=== PATIENT | male | born 1980 | race Caucasian/White ===

== ENCOUNTER → 2017-12-31 | Outpatient (REF) | payer OTHER | LOC: M SFHCLERA 13:49 | DX: J02.9 Acute pharyngitis, unspecified (principal) ==

== ENCOUNTER 2018-01-30 22:24 | Emergency (ER) | payer OTHER, SELFPAY ==
[2018-01-30 23:36] LABS: BASO # 0.1 10^3/uL (0.0-0.2); EOS # 0.4 10^3/uL (0.0-0.50); EOS % 4.5 % (0.0-3.0); HEMATOCRIT 44.2 % (42.0-52.0); IMMATURE GRANULOCYTE % 0.2 % (0-3.0); LYMPH # 1.8 10^3/uL (1.5-4.5); LYMPH % 20.9 % (24.0-44.0); MEAN CORPUSCULAR HEMOGLOBIN 32.7 pg (27.0-33.0); MEAN CORPUSCULAR HGB CONC 36.2 g/dl (32.0-36.5); MEAN CORPUSCULAR VOLUME 90.4 fl (80.0-96.0); MONO # 0.7 10^3/uL (0.0-0.8); MONO % 8.4 % (0.0-5.0); NEUTROPHILS # 5.7 10^3/uL (1.8-7.7); PLATELET COUNT, AUTOMATED 233 10^3/uL (150-450); RED BLOOD COUNT 4.89 10^6/uL (4.30-6.10); RED CELL DISTRIBUTION WIDTH 12.1 % (11.5-14.5); WHITE BLOOD COUNT 8.8 10^3/uL (4.0-10.0)
[2018-01-30] MEDS: PERCOCET 5MG/325MG TAB PO ×2 (23:47)
[2018-01-31 00:48] LABS: ANION GAP 9 MEQ/L (8-16); BLOOD UREA NITROGEN 16 MG/DL (7-18); C REACTIVE PROTEIN QUANTITATIV 0.59 MG/DL (0.00-0.30); CALCIUM LEVEL 7.8 MG/DL (8.5-10.1); CARBON DIOXIDE LEVEL 24 MEQ/L (21-32); CHLORIDE LEVEL 108 MEQ/L (98-107); GLOMERULAR FILTRATION RATE > 60.0 (>60); GLUCOSE, FASTING 117 MG/DL (70-100); SODIUM LEVEL 141 MEQ/L (136-145)
[2018-01-31] MEDS: predniSONE 20 MG TAB PO ×2 (01:40)
[2018-01-31] MEDS: NORCO 5/325MG TABLET (BULK FOR ED) PO ×2 (01:41)
== END 2018-01-31 01:48 | disposition home or self-care (01) ==
LOC: M ED 01-31 01:48
DX: R22.31 Localized swelling, mass and lump, right upper limb (principal); M79.9 Soft tissue disorder, unspecified; L40.9 Psoriasis, unspecified; F17.210 Nicotine dependence, cigarettes, uncomplicated
CPT/HCPCS: 73200

== ENCOUNTER → 2018-04-07 | Outpatient (REF) | payer OTHER ==
[~2018-04-07] MED LIST: NORCOTAB PO; PRED20TA PO
== END ==
LOC: M SFHCLERA 15:46
PROVIDERS: ATTEND Nurse Practitioner Family
DX: R68.89 Other general symptoms and signs (principal)

== ENCOUNTER → 2018-05-16 | Outpatient (REF) | payer OTHER | LOC: M SFHCLERA 12:18 | PROVIDERS: ATTEND Physician Assistant | DX: R50.9 Fever, unspecified (principal) ==

== ENCOUNTER → 2018-05-16 | Outpatient (CLI) | payer OTHER ==
--- NOTE | 2018-05-17 07:24 | REP ---
Chest x-ray: Two views. History: Fever, chills, cough, chest pain. . Comparison study: October 19, 2007 . Findings: The lungs are well inflated and free of infiltrate. The pleural angles are sharp. The heart size is normal. Pulmonary vasculature is not increased. No significant bony abnormality is seen. Impression: Negative chest x-ray. Electronically Signed by Andrei Bautista MD 05/16/2018 01:24 P
== END ==
LOC: M LRY 12:40
PROVIDERS: ATTEND Physician Assistant
DX: R50.9 Fever, unspecified (principal); R07.9 Chest pain, unspecified; R05 Cough

== ENCOUNTER 2018-06-25 20:55 | Emergency (ER) | payer OTHER ==
[~2018-06-25] VITALS: Ht 182.9 cm; Wt 100.0 kg
[~2018-06-25 20:55] MED LIST changes: -BACT800T5 PO; -CLEO300C2 PO
[2018-06-25] MEDS ORDERED: BACT800T5 PO (21:01)
[2018-06-25] MEDS ORDERED: KETOROLAC 30 MG/ML VIAL (J1885) IV ONE (21:30)
[2018-06-25 21:57] LABS: BASO # 0.1 10^3/uL (0.0-0.2); BASO % 0.8 % (0.0-1.0); EOS # 0.2 10^3/uL (0.0-0.50); EOS % 2.7 % (0.0-3.0); HEMATOCRIT 46.9 % (42.0-52.0); HEMOGLOBIN 16.1 g/dl (13.5-17.5); LYMPH % 23.3 % (24.0-44.0); MEAN CORPUSCULAR HEMOGLOBIN 30.6 pg (27.0-33.0); MEAN CORPUSCULAR HGB CONC 34.3 g/dl (32.0-36.5); MONO # 0.7 10^3/uL (0.0-0.8); NEUTROPHILS # 5.6 10^3/uL (1.8-7.7); PLATELET COUNT, AUTOMATED 230 10^3/uL (150-450); RED BLOOD COUNT 5.27 10^6/uL (4.30-6.10); WHITE BLOOD COUNT 8.6 10^3/uL (4.0-10.0)
[2018-06-25] MEDS ORDERED: CLINDAMYCIN 900 MG in APPROPRIATE DILUENT 1 EA IV ONE (22:15)
[2018-06-25 22:27] LABS: BLOOD UREA NITROGEN 15 MG/DL (7-18); C REACTIVE PROTEIN QUANTITATIV 0.39 MG/DL (0.00-0.30); CALCIUM LEVEL 8.9 MG/DL (8.5-10.1); CARBON DIOXIDE LEVEL 26 MEQ/L (21-32); CHLORIDE LEVEL 111 MEQ/L (98-107); CREATININE FOR GFR 0.72 MG/DL (0.70-1.30); GLOMERULAR FILTRATION RATE > 60.0 (>60); GLUCOSE, FASTING 73 MG/DL (70-100); POTASSIUM SERUM 4.5 MEQ/L (3.5-5.1); SODIUM LEVEL 142 MEQ/L (136-145)
[2018-06-25] MEDS: ACETAMINOPHEN 325 MG TAB PO ONE ×2 (22:33→22:42)
[2018-06-25 23:20] LABS: ALBUMIN 4.1 GM/DL (3.2-5.2); ALT/SGPT 96 U/L (12-78); BILIRUBIN,DIRECT 0.2 MG/DL (0.0-0.2); BILIRUBIN,TOTAL 0.7 MG/DL (0.2-1.0); TOTAL PROTEIN 7.5 GM/DL (6.4-8.2)
[2018-06-25 23:34] LABS: ERYTHROCYTE SEDIMENTATION RATE 3 mm/hr (0-15)
[2018-06-25] MEDS ORDERED: CLEO300C2 PO (23:36)
[2018-06-25 23:56] VITALS: BP 134/74
== END 2018-06-25 23:58 | disposition home or self-care (01) ==
LOC: M ED 20:55
DX: L03.113 Cellulitis of right upper limb (principal); T45.1X5A Adverse effect of antineoplastic and immunosuppressive drugs, initial encounter; R94.5 Abnormal results of liver function studies; F17.200 Nicotine dependence, unspecified, uncomplicated; Z79.2 Long term (current) use of antibiotics; K92.9 Disease of digestive system, unspecified; N50.9 Disorder of male genital organs, unspecified

== ENCOUNTER → 2018-06-25 | Outpatient (REF) | payer OTHER ==
[~2018-06-25] MED LIST changes: +BACT800T5 PO; +CLEO300C2 PO
== END ==
LOC: M SFHCLERA 17:36
PROVIDERS: ATTEND Physician Assistant
DX: J02.9 Acute pharyngitis, unspecified (principal)

== ENCOUNTER 2018-10-05 00:21 | Emergency (ER) | payer OTHER ==
[~2018-10-05] VITALS: Ht 182.9 cm; Wt 102.3 kg
[~2018-10-05 00:21] MED LIST changes: +BACT800T5 PO; +CLEO300C2 PO; +HYDR-3715 PO; -NORCOTAB PO
[2018-10-05 00:22] VITALS: BP 151/90
[2018-10-05] MEDS ORDERED: OXYC10TA12 (00:26)
[2018-10-05] MEDS ORDERED: GABA-843 (00:26)
[2018-10-05] MEDS ORDERED: LEVO25TA5 PO (00:26)
[2018-10-05] MEDS ORDERED: BACT800T5 PO (03:59)
[2018-10-05] MEDS ORDERED: BACTRIM 160MG/800MG DS TAB PO ONE (04:00)
[2018-10-05] MEDS ORDERED: LIDOCAINE 1% SDV 5 ML VIAL DILUENT ONE (04:00)
[2018-10-05] MEDS ORDERED: cefTRIAXone SOD 1 GM VIAL (J0696) IM ONE (04:00)
== END 2018-10-05 04:17 | disposition home or self-care (01) ==
LOC: M ED 00:21
DX: L03.114 Cellulitis of left upper limb (principal); L04.0 Acute lymphadenitis of face, head and neck; Z72.0 Tobacco use; Z79.899 Other long term (current) drug therapy
CPT/HCPCS: 96372; 99283; J0696

== ENCOUNTER 2019-02-02 09:42 | Emergency (ER) | payer OTHER ==
[~2019-02-02] VITALS: Ht 182.9 cm; Wt 102.2 kg
[~2019-02-02 09:42] MED LIST changes: +GABA-843; +LEVO25TA5 PO; +OXYC10TA12
[2019-02-02] MEDS ORDERED: IPRATROPIUM 0.5MG/ALBUTEROL 2.5MG INH SOL UD 3ML (DUONEB)(J7620) NEB ONE (10:30)
--- NOTE | 2019-02-02 10:46 | REP ---
Single view chest: 02/02/2019. Indication: Chest pain. Comparison: 05/16/2018. Findings: The lungs are clear. There is no pleural effusion or pneumothorax. The cardiomediastinal silhouette is unremarkable. Impression: No acute cardiopulmonary process. Electronically Signed by Chad Galindo DO 02/02/2019 10:37 A
[2019-02-02 10:55] LABS: BASO # 0.1 10^3/uL (0.0-0.2); BASO % 0.9 % (0.0-1.0); EOS # 0.2 10^3/uL (0.0-0.5); EOS % 2.5 % (0.0-3.0); HEMATOCRIT 47.7 % (42.0-52.0); HEMOGLOBIN 16.8 g/dl (13.5-17.5); LYMPH # 1.1 10^3/uL (1.5-5.0); MEAN CORPUSCULAR HEMOGLOBIN 31.7 pg (27.0-33.0); MEAN CORPUSCULAR HGB CONC 35.2 g/dl (32.0-36.5); MONO # 0.9 10^3/uL (0.0-0.8); MONO % 10.6 % (0.0-5.0); NEUTROPHILS # 5.7 10^3/uL (1.5-8.5); NEUTROPHILS % 71.6 % (36.0-66.0); PLATELET COUNT, AUTOMATED 197 10^3/uL (150-450)
[2019-02-02 11:14] LABS: ERYTHROCYTE SEDIMENTATION RATE 2 mm/hr (0-15)
[2019-02-02 11:19] LABS: INR 1.03; PROTHROMBIN TIME 13.2 SECONDS (11.8-14.0)
[2019-02-02 11:20] LABS: PARTIAL THROMBOPLASTIN TIME 32.7 SECONDS (25.0-38.4)
[2019-02-02 11:32] LABS: INFLUENZA A AMPLIFICATION NEGATIVE (NEGATIVE); INFLUENZA B AMPLIFICATION NEGATIVE (NEGATIVE)
[2019-02-02 11:33] LABS: ALT/SGPT 83 U/L (12-78); BILIRUBIN,DIRECT 0.2 MG/DL (0.0-0.2); BILIRUBIN,TOTAL 0.7 MG/DL (0.2-1.0); BLOOD UREA NITROGEN 17 MG/DL (7-18); C REACTIVE PROTEIN QUANTITATIV 0.56 MG/DL (0.00-0.30); CALCIUM LEVEL 9.2 MG/DL (8.5-10.1); CARBON DIOXIDE LEVEL 26 MEQ/L (21-32); CHLORIDE LEVEL 107 MEQ/L (98-107); CK-MB VALUE MASS 1.7 NG/ML (<3.6); CPK CREATINE PHOSPHOKINASE 142 U/L (39-308); CREATININE FOR GFR 0.98 MG/DL (0.70-1.30); GLOMERULAR FILTRATION RATE > 60.0 (>60); GLUCOSE, FASTING 103 MG/DL (70-100); POTASSIUM SERUM 3.8 MEQ/L (3.5-5.1); SODIUM LEVEL 140 MEQ/L (136-145); TOTAL PROTEIN 6.9 GM/DL (6.4-8.2); TROPONIN I < 0.02 NG/ML (< 0.10)
[2019-02-02] MEDS ORDERED: NS 1,000 ML IV ONE (11:45)
[2019-02-02] MEDS ORDERED: dexameTHASONE 20 MG/5 ML VIAL (J1100) IV ONE (11:45)
[2019-02-02] MEDS ORDERED: KETOROLAC 30 MG/ML VIAL (J1885) IV ONE (11:45)
[2019-02-02] MEDS ORDERED: ISOVUE-370 76% 100ML VIAL (Q9967) As Ordered ONE (11:47)
[2019-02-02] MEDS ORDERED: oxyCODONE 5MG TAB PO ONE (13:15)
[2019-02-02 14:02] LABS: CK-MB VALUE MASS 1.4 NG/ML (<3.6); CPK CREATINE PHOSPHOKINASE 97 U/L (39-308); MB/CK RELATIVE INDEX 1.44 (< OR =4); TROPONIN I < 0.02 NG/ML (< 0.10)
--- NOTE | 2019-02-02 14:30 | ECGEPIP ---
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
--- NOTE | 2019-02-02 14:33 | ECGEPIP ---
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
--- NOTE | 2019-02-02 14:45 | REP ---
CT ANGIOGRAM CHEST: TECHNIQUE: Axial contrast enhanced images from the thoracic inlet to the upper abdomen using 100 mL Isovue 370 intravenous contrast material with multiplanar reformations. Study is limited by motion. However, no definite pulmonary embolism is seen. There is no thoracic aortic aneurysm or dissection. Heart is normal in size. There is no pleural or pericardial effusion. There is right axillary adenopathy with several enlarged lymph nodes present. The largest lymph node measures 2.5 x 2.0 cm. There are normal sized left axillary lymph nodes. There is no mediastinal or hilar adenopathy. Dependent atelectatic changes are seen in both lungs. IMPRESSION: Limited exam due to patient motion. No definite pulmonary embolism. No thoracic aortic aneurysm or dissection. Right axillary adenopathy. There are dependent atelectatic changes in each lung. Electronically Signed by Dusty Chahal MD 02/04/2019 10:56 A
[2019-02-02 15:00] VITALS: BP 122/68
[2019-02-02] MEDS ORDERED: PRED20TA PO (15:06)
[2019-02-02] MEDS ORDERED: PROV108A INH (15:06)
== END 2019-02-02 15:41 | disposition home or self-care (01) ==
LOC: M ED 09:42
DX: J45.909 Unspecified asthma, uncomplicated (principal); G89.29 Other chronic pain; M54.9 Dorsalgia, unspecified; Z79.899 Other long term (current) drug therapy; F17.210 Nicotine dependence, cigarettes, uncomplicated
CPT/HCPCS: 36415; 71045; 71275; 80048; 80076; 82550; 82553; 84484; 85025; 85610; 85652; 85730; 86140; 87502; 93005; 93041; 94640; 94760; 96361; 96374; 96375; 99285; J1100; J1885; Q9967

== ENCOUNTER → 2019-07-03 | Outpatient (REF) | payer OTHER ==
[~2019-07-03] MED LIST changes: +PROV108A INH
== END ==
LOC: M SFHCLERA 14:10
PROVIDERS: ATTEND Nurse Practitioner Family
DX: J00 Acute nasopharyngitis [common cold] (principal)
CPT/HCPCS: 71046; 87486; 87581; 87633; 87798; 87804; G0463; U0002

== ENCOUNTER → 2019-07-03 | Outpatient (CLI) | payer OTHER ==
--- NOTE | 2019-07-03 14:55 | REP ---
CHEST, TWO VIEWS: There is no evidence of acute infiltrate. No pleural effusion is seen. The heart is normal in size. The mediastinal silhouette is unremarkable. The visualized osseous structures are intact. IMPRESSION: No acute pulmonary disease. Electronically Signed by Dusty Chahal MD 07/03/2019 03:23 P
== END ==
LOC: M LRY 14:17
PROVIDERS: ATTEND Nurse Practitioner Family
DX: R06.09 Other forms of dyspnea (principal)

== ENCOUNTER 2020-02-14 06:37 | Emergency (ER) | payer OTHER ==
[~2020-02-14] VITALS: Ht 182.9 cm; Wt 108.9 kg
[~2020-02-14 06:37] MED LIST changes: -GABA-843; +GABA-843 PO
[2020-02-14] MEDS ORDERED: SILD100T (06:57)
[2020-02-14] MEDS ORDERED: IBUP80TA PO (06:57)
[2020-02-14] MEDS ORDERED: ALBUTEROL 90 MCG/ACT 8GM HFA INHALER INH SCH (07:30)
[2020-02-14 08:12] LABS: BASO # 0.1 10^3/uL (0.0-0.2); BASO % 1.4 % (0.0-1.0); EOS # 0.5 10^3/uL (0.0-0.5); EOS % 6.3 % (0.0-3.0); HEMATOCRIT 47.1 % (42.0-52.0); LYMPH # 2.1 10^3/uL (1.5-5.0); LYMPH % 24.9 % (24.0-44.0); MEAN CORPUSCULAR VOLUME 91.3 fl (80.0-96.0); MONO % 11.2 % (0.0-5.0); NEUTROPHILS # 4.8 10^3/uL (1.5-8.5); PLATELET COUNT, AUTOMATED 235 10^3/uL (150-450); RED BLOOD COUNT 5.16 10^6/uL (4.30-6.10); WHITE BLOOD COUNT 8.5 10^3/uL (4.0-10.0)
[2020-02-14 08:47] LABS: ALT/SGPT 72 U/L (12-78); BILIRUBIN,DIRECT 0.1 MG/DL (0.0-0.2); BILIRUBIN,TOTAL 0.3 MG/DL (0.2-1.0); BLOOD UREA NITROGEN 14 MG/DL (7-18); CALCIUM LEVEL 9.4 MG/DL (8.5-10.1); CARBON DIOXIDE LEVEL 25 MEQ/L (21-32); CHLORIDE LEVEL 108 MEQ/L (98-107); CK-MB VALUE MASS 3.2 NG/ML (<3.6); CPK CREATINE PHOSPHOKINASE 194 U/L (39-308); GLOMERULAR FILTRATION RATE > 60.0 (>60); GLUCOSE, FASTING 104 MG/DL (70-100); MB/CK RELATIVE INDEX 1.65 (< OR =4); NT-PRO BNP 22 PG/ML (<125); POTASSIUM SERUM 4.2 MEQ/L (3.5-5.1); SODIUM LEVEL 141 MEQ/L (136-145); THYROXINE (T4) 10.5 UG/DL (4.5-12.0); TROPONIN I < 0.02 NG/ML (< 0.10)
--- NOTE | 2020-02-14 09:36 | REP ---
INDICATION: DYSPNEA/COUGH COMPARISON: 07/03/2019. TECHNIQUE: PA/Lateral FINDINGS: Lungs: Clear, no infiltrate. Heart: Normal in size. Mediastinum: Mediastinal silhouette unremarkable. Pleural angles: Unremarkable.. Bones and soft tissues: Unremarkable. IMPRESSION: No acute pulmonary disease. <Electronically signed by Dusty Chahal > 02/14/20 [id number]
[2020-02-14] MEDS ORDERED: PROAAER10 INH (10:42)
[2020-02-14 11:04] VITALS: BP 132/73
--- NOTE | 2020-02-14 20:33 | ECGEPIP ---
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
== END 2020-02-14 11:07 | disposition home or self-care (01) ==
LOC: M ED 06:37
DX: J45.901 Unspecified asthma with (acute) exacerbation (principal); B34.9 Viral infection, unspecified; I10 Essential (primary) hypertension; F90.9 Attention-deficit hyperactivity disorder, unspecified type; K76.0 Fatty (change of) liver, not elsewhere classified; G89.29 Other chronic pain; M54.9 Dorsalgia, unspecified; F17.210 Nicotine dependence, cigarettes, uncomplicated

== ENCOUNTER 2020-05-20 20:19 | Emergency (ER) | payer OTHER ==
[~2020-05-20] VITALS: Ht 188 cm; Wt 103.5 kg
[~2020-05-20 20:19] MED LIST changes: +GABA-282 PO; -GABA-843 PO; +IBUP80TA PO; +PROAAER10 INH; +SILD100T
[2020-05-20] MEDS ORDERED: IBUPROFEN 800 MG TAB PO ONE (21:00)
[2020-05-20] MEDS ORDERED: PERCOCET 5MG/325MG TAB PO ONE (21:00)
[2020-05-20] MEDS ORDERED: ONDANSETRON 4 MG TAB PO ONE ×2 (21:00)
[2020-05-20] MEDS ORDERED: GABAPENTIN 300 MG CAP PO ONE (21:00)
[2020-05-20 22:45] LABS: BASO # 0.1 10^3/uL (0.0-0.2); BASO % 0.8 % (0.0-1.0); EOS # 0.2 10^3/uL (0.0-0.5); EOS % 2.5 % (0.0-3.0); HEMATOCRIT 47.8 % (42.0-52.0); HEMOGLOBIN 16.4 g/dl (13.5-17.5); LYMPH # 2.4 10^3/uL (1.5-5.0); LYMPH % 28.6 % (24.0-44.0); MEAN CORPUSCULAR HEMOGLOBIN 31.2 pg (27.0-33.0); MEAN CORPUSCULAR HGB CONC 34.3 g/dl (32.0-36.5); MONO # 0.6 10^3/uL (0.0-0.8); MONO % 7.4 % (0.0-5.0); NEUTROPHILS # 5.2 10^3/uL (1.5-8.5); NEUTROPHILS % 60.6 % (36.0-66.0); PLATELET COUNT, AUTOMATED 233 10^3/uL (150-450); RED BLOOD COUNT 5.25 10^6/uL (4.30-6.10); WHITE BLOOD COUNT 8.5 10^3/uL (4.0-10.0)
[2020-05-20 23:07] LABS: ALBUMIN 4.2 GM/DL (3.2-5.2); ALT/SGPT 72 U/L (12-78); BILIRUBIN,TOTAL 0.8 MG/DL (0.2-1.0); BLOOD UREA NITROGEN 12 MG/DL (7-18); CALCIUM LEVEL 9.4 MG/DL (8.5-10.1); CARBON DIOXIDE LEVEL 26 MEQ/L (21-32); CHLORIDE LEVEL 110 MEQ/L (98-107); CREATININE FOR GFR 0.76 MG/DL (0.70-1.30); GLOMERULAR FILTRATION RATE > 60.0 (>60); GLUCOSE, FASTING 83 MG/DL (70-100); POTASSIUM SERUM 4.1 MEQ/L (3.5-5.1); SODIUM LEVEL 142 MEQ/L (136-145)
[2020-05-21] MEDS ORDERED: ONDA4TAB6 PO (00:21)
[2020-05-21 00:30] VITALS: BP 107/55
[2020-05-21] MEDS ORDERED: GABAPENTIN 300 MG CAP PO ONE (09:00)
[2020-05-21] MEDS ORDERED: IBUPROFEN 800 MG TAB PO ONE (09:00)
[2020-05-21] MEDS ORDERED: PERCOCET 5MG/325MG TAB PO ONE (09:00)
== END 2020-05-21 00:36 | disposition home or self-care (01) ==
LOC: M ED 20:19
DX: A08.4 Viral intestinal infection, unspecified (principal); F17.210 Nicotine dependence, cigarettes, uncomplicated

== ENCOUNTER 2020-12-21 00:11 | Emergency (ER) | payer OTHER ==
[~2020-12-21] VITALS: Ht 182.9 cm; Wt 102.0 kg
[~2020-12-21 00:11] MED LIST changes: +ONDA4TAB6 PO
--- NOTE | 2020-12-21 05:30 | REPVR ---
PROCEDURE INFORMATION: Exam: US Duplex Right Upper Extremity Veins, Limited Exam date and time: 12/21/2020 1:52 AM Age: 40 years old Clinical indication: Pain; Arm, lower; Right; Additional info: Pain and swelling TECHNIQUE: Imaging protocol: Real-time Duplex ultrasound of the Right Upper Extremity with 2-D cox scale, color Doppler flow and spectral waveform analysis with image documentation. Limited exam focused on the right upper extremity veins. COMPARISON: 1. CT-Hand WITHOUT CONTRAST 2018-01-30 22:[address] ANGIO CHEST 2019-02-02 12:04 FINDINGS: Right deep veins: Unremarkable. Axillary and brachial veins are patent throughout without thrombus. Normal Doppler waveforms. Normal compressibility and/or augmentation response. Visualized internal jugular and subclavian veins are patent. Right superficial veins: Unremarkable. Visualized cephalic and basilic veins are patent without thrombus. Soft tissues: Unremarkable. IMPRESSION: No evidence of deep vein thrombosis. Electronically signed by: Kory Finney On 12/21/2020 05:29:05 AM
[2020-12-21] MEDS ORDERED: oxyCODONE 5MG TAB PO ONE (06:55)
[2020-12-21 07:24] LABS: BASO # 0.1 10^3/uL (0.0-0.2); BASO % 1.1 % (0.0-1.0); EOS # 0.5 10^3/uL (0.0-0.5); EOS % 6.5 % (0.0-3.0); HEMATOCRIT 50.9 % (42.0-52.0); HEMOGLOBIN 18.1 g/dl (13.5-17.5); LYMPH # 1.5 10^3/uL (1.5-5.0); LYMPH % 20.5 % (24.0-44.0); MEAN CORPUSCULAR HEMOGLOBIN 32.7 pg (27.0-33.0); MEAN CORPUSCULAR HGB CONC 35.6 g/dl (32.0-36.5); MEAN CORPUSCULAR VOLUME 91.9 fl (80.0-96.0); MONO # 0.7 10^3/uL (0.0-0.8); MONO % 9.2 % (2.0-8.0); NEUTROPHILS # 4.5 10^3/uL (1.5-8.5); NEUTROPHILS % 62.3 % (36.0-66.0); PLATELET COUNT, AUTOMATED 169 10^3/uL (150-450); RED BLOOD COUNT 5.54 10^6/uL (4.30-6.10); WHITE BLOOD COUNT 7.2 10^3/uL (4.0-10.0)
[2020-12-21 08:31] VITALS: BP 129/77
== END 2020-12-21 08:41 | disposition home or self-care (01) ==
LOC: M ED 00:11
DX: R22.31 Localized swelling, mass and lump, right upper limb (principal); I10 Essential (primary) hypertension; E03.9 Hypothyroidism, unspecified; Z79.899 Other long term (current) drug therapy; F17.210 Nicotine dependence, cigarettes, uncomplicated

== ENCOUNTER → 2024-10-18 | Outpatient (CLI) | payer OTHER ==
[~2024-10-18] MED LIST changes: +ALBU6.7H6 INH; +GABA-1172 PO; -GABA-282 PO; +ONDA-282 PO; -ONDA4TAB6 PO; -PROV108A INH
== END ==
LOC: M RAD 15:34
PROVIDERS: ATTEND Internal Medicine
DX: R10.9 Unspecified abdominal pain (principal)